=== PATIENT | male | born 2000 | race Two or more races ===

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

== ENCOUNTER 2025-07-19 19:16 | Emergency (ER) | payer OTHER, MEDICAID ==
[~2025-07-19] VITALS: Ht 167.6 cm; Wt 90.9 kg
[2025-07-19 19:41] VITALS: TEMP 98.1
[2025-07-20] VITALS: BP 127/82; PULSE 78; RESP 17; O2SAT 97
== END 2025-07-20 00:40 | disposition home or self-care (01) ==
LOC: EMS 19:16
DX: S02.2XXA Fracture of nasal bones, initial encounter for closed fracture (principal); S00.83XA Contusion of other part of head, initial encounter; R10.9 Unspecified abdominal pain; R11.0 Nausea; F12.90 Cannabis use, unspecified, uncomplicated; J45.909 Unspecified asthma, uncomplicated; Y04.0XXA Assault by unarmed brawl or fight, initial encounter; Y93.89 Activity, other specified; Y92.89 Other specified places as the place of occurrence of the external cause; Y99.0 Civilian activity done for income or pay
CPT/HCPCS: 70450; 70486; 72125; 99284